=== PATIENT | female | born 1945 | race Caucasian/White ===

== ENCOUNTER → 2017-09-10 | Outpatient (CLI) | payer MEDICARE, OTHER ==
--- NOTE | 2017-09-10 11:38 | Diagnostic Imaging Report ---
PROCEDURE: US THYROID COMPARISON: None. INDICATIONS:Hyperparathyroidism, Hypercalcemia TECHNIQUE: Transverse and longitudinal reyes-scale sonographic images of the thyroid were obtained and supplemented with color Doppler. FINDINGS: Right thyroid lobe: 4.4 x 1.3 x 1.9 cm, normal in size. Homogeneous in echotexture. No increased vascularity. Multiple nodules, including: * Inferior pole 1.1 x 0.6 x 1 cm predominantly cystic nodule * Inferior pole 0.8 x 0.4 x 0.7 cm predominantly cystic nodule * Inferior pole 1.1 x 0.6 x 1 cm solid isoechoic nodule (TR 3) Left thyroid lobe: 4.6 x 1.3 x 1.7 cm, normal in size. Homogeneous in echotexture. No increased vascularity. Multiple nodules, including: * Interpolar/inferior pole 1.1 x 0.7 x 0.8 cm cystic nodule * Interpolar/superior pole 0.7 x 0.5 x 0.6 cm predominantly cystic nodule * Interpolar/superior pole 0.4 x 0.2 x 0.4 cm solid isoechoic nodule (TR 3) Isthmus: 0.3 cm in thickness. Homogeneous in echotexture. No increased vascularity. * 0.3 x 0.2 x 0.2 cm cystic nodule No parathyroid nodules visualized. CONCLUSION: Multiple thyroid nodules as above which do not meet criteria for FNA or follow up according to ACR TI-RADS guidelines. Dictated by: Edson Aldana M.D. on 09/10/2017 at 11:48 Electronically approved by: Edson Aldana M.D. on 09/10/2017 at 11:48
--- NOTE | 2017-09-10 18:33 | Diagnostic Imaging Report ---
Parathyroid Scan Reason for exam: Hyperparathyroidism; hypercalcemia Radiopharmaceutical: Tc-99m sestamibi 26 mCi After intravenous administration of the radiopharmaceutical, immediate and 2-hour planar images of the neck and upper chest were obtained. Tomographic images of the neck and upper chest were also obtained following the initial planar images. Distribution of tracer activity appears physiologic throughout the neck and upper chest on the planar and tomographic images. No focal areas of increased tracer accumulation are identified. On the delayed planar images, washout of tracer from the thyroid is complete with no focal areas of persistent tracer activity. Impression: Negative parathyroid scan No enlarged hypermetabolic parathyroid glands are identified. Signed by: Dr. Lisa Fernandes M.D. on 09/10/2017 6:29 PM
== END ==
LOC: US 09:59
PROVIDERS: ATTEND Internal Medicine
DX: N20.0 Calculus of kidney (principal); E83.52 Hypercalcemia; E21.0 Primary hyperparathyroidism
CPT/HCPCS: 76536; 78071; A9500